=== PATIENT | male | born 1995 | race Two or more races ===

== ENCOUNTER 2023-07-02 20:33 | Emergency (ER) | payer OTHER ==
[~2023-07-02] VITALS: Ht 182.9 cm; Wt 81.6 kg
[2023-07-03 00:10] VITALS: BP 120/75; TEMP 98; O2SAT 97
== END 2023-07-03 00:10 | disposition home or self-care (01) ==
LOC: ER 20:36
DX: M25.512 Pain in left shoulder (principal); M25.532 Pain in left wrist; M79.645 Pain in left finger(s); M54.50 Low back pain, unspecified; F17.200 Nicotine dependence, unspecified, uncomplicated; Z98.890 Other specified postprocedural states; Z59.00 Homelessness unspecified; Y04.0XXA Assault by unarmed brawl or fight, initial encounter; Y93.89 Activity, other specified; Y92.89 Other specified places as the place of occurrence of the external cause; Y99.8 Other external cause status
CPT/HCPCS: 72110-TC; 73030-TC; 73110